=== PATIENT | male | born 1995 | race Asian ===

== ENCOUNTER → 2022-09-21 19:06 | Outpatient (CLI) | payer OTHER, SELFPAY ==
--- NOTE | 2022-09-21 19:10 | DI.MRI.S_ITS ---
PROCEDURE: MR LUMBAR SPINE WO CON INDICATIONS: Low back pain, unspecified TECHNIQUE: Noncontrast sagittal T1 spin echo and T2 fast echo, sagittal STIR, and T2 fast spin echo through the lumbar spine. In cases with scoliosis, additional coronal T2 fast spin echo may be performed. COMPARISON: None. FINDINGS: Image quality: Excellent. Alignment and Curvature: There is mild straightening of normal lumbar lordosis. Bone Marrow: Marrow is of normal overall signal. No acute vertebral body compression fractures. Spinal Cord: Conus medullaris terminates at the L1 level. Visualized cord demonstrates normal signal and size. Paraspinous Soft Tissues: No paravertebral masses. T12-L1: Normal appearance. L1-L2: Normal appearance. L2-L3: Normal appearance. L3-L4: Mild broad-based disc bulge and bilateral facet arthrosis with hypertrophy of ligamentum flavum is seen causing mild central canal stenosis, no significant neural foraminal narrowing. L4-L5: There is loss of disc signal. Broad-based disc bulge and bilateral facet arthrosis with hypertrophy of ligamentum flavum is seen. There is moderate central canal stenosis and moderate bilateral neural foraminal narrowing . L5-S1: There is loss of disc signal. Diffuse disc bulge and bilateral facet arthrosis is seen with mild central canal stenosis and moderate left worse than right bilateral neural foraminal narrowing. IMPRESSION: 1. Degenerative disc disease at L3-4 through L5-S1 levels causing various degrees of central canal stenosis and bilateral neural foraminal narrowing as above. 2. No marrow edema. No acute compression fracture or spondylolisthesis. Dictated by: Vidal Hopper M.D. on 09/24/2022 at 12:07 Approved by: Vidal Hopper M.D. on 09/24/2022 at 12:09
== END ==
DX: M51.36 Other intervertebral disc degeneration, lumbar region (principal); M51.37 Other intervertebral disc degeneration, lumbosacral region; M48.061 Spinal stenosis, lumbar region without neurogenic claudication; M48.07 Spinal stenosis, lumbosacral region; M54.50 Low back pain, unspecified
CPT/HCPCS: 72148